=== PATIENT | female | born 1955 | race Caucasian/White ===

== ENCOUNTER 2017-07-27 17:30 | Emergency (ER) | payer OTHER ==
--- NOTE | 2017-07-27 19:10 | PDOC ---
Rapid Medical Evaluation Time Seen by Provider: 07/27/17 18:35 Medical Evaluation: Allergies Allergy/AdvReac Type Severity Reaction Status Date / Time Penicillins Allergy Verified 06/10/15 12:30
== END 2017-07-27 22:13 | disposition left against medical advice (07) ==
LOC: JER 17:30
DX: Z53.21 Procedure and treatment not carried out due to patient leaving prior to being seen by health care provider (principal)
CPT/HCPCS: 99281-25

== ENCOUNTER 2020-08-25 11:46 | Emergency (ER) | payer OTHER ==
[2020-08-25] MEDS ORDERED: BAMLANIVIMAB 700 MG, ETESEVIMAB 1,400 MG in SODIUM CHLORIDE 250 ML IVPB ONE (12:39)
[2020-08-25 13:32] VITALS: TEMP 98.6; BMI 46.5
[2020-08-25 15:29] LABS: POTASSIUM 4.2 mmol/L (3.5-5.1)
[2020-08-25 15:31] LABS: BLOOD UREA NITROGEN 12.9 mg/dL (7-18); CALCIUM 10.7 mg/dL (8.5-10.1)
[2020-08-25 15:35] LABS: CREATININE 0.5 mg/dL (0.55-1.3)
[2020-08-25 15:38] LABS: BASO % 0.6 % (0-2.0); EOS % 1.4 % (0-4.5); HEMATOCRIT 42.7 % (32.4-45.2); HEMOGLOBIN 14.2 GM/dL (10.7-15.3); LYMPH % 34.1 % (8-40); MCH 30.7 pg (25.7-33.7); MCHC 33.3 g/dl (32.0-36.0); MEAN PLT VOLUME 10.3 fl (7.5-11.1); MONO % 8.6 % (3.8-10.2); NEUT % 55.3 % (42.8-82.8); PLATELET COUNT 191 K/MM3 (134-434); RBC 4.65 M/mm3 (3.60-5.2); RDW 13.2 % (11.6-15.6); WHITE BLOOD COUNT 4.8 K/mm3 (4.0-10.0)
[2020-08-25 18:17] VITALS: BP 134/77; PULSE 73
== END 2020-08-25 17:30 | disposition home or self-care (01) ==
LOC: JER 11:46
DX: U07.1 COVID-19 (principal)
CPT/HCPCS: 36415; 80048; 85025; 99284-25; M0239; Q0239; Q0245

== ENCOUNTER 2021-09-15 04:26 | Day surgery (SDC) | payer OTHER ==
[2021-08-25 14:39] VITALS: BMI 39.9
[2021-09-15] MEDS ORDERED: MIDAZOLAM HCL 2 MG/2 ML SINGLE DOSE VIAL ONE (09:22)
[2021-09-15] MEDS ORDERED: PROPOFOL 20 ML ONE ×3 (09:30→09:53)
[2021-09-15] MEDS ORDERED: KETAMINE HCL 200 MG/20 ML VIAL ONE (09:30)
[2021-09-15] MEDS ORDERED: ONDANSETRON 4 MG/2 ML VIAL IVPUSH PRN (10:11)
[2021-09-15] MEDS ORDERED: IBUPROFEN 600 MG TABLET (FP) PO PRN (10:11)
[2021-09-15] MEDS ORDERED: IBUPROFEN 800 MG/8 ML IJ IVPB PRN (10:11)
[2021-09-15] MEDS ORDERED: oxyCODONE HCL 5 MG TABLET PO PRN (10:11)
[2021-09-15] MEDS ORDERED: ELECTROLYTE-148 SOLN 1,000 ML IV SCH (10:15)
[2021-09-15] MEDS ORDERED: ROCURONIUM BROMIDE 50 MG/5 ML SYRINGE ONE (10:24)
[2021-09-15 13:47] VITALS: BP 126/69; PULSE 82; TEMP 97.8
== END 2021-09-15 13:51 | disposition home or self-care (01) ==
LOC: JASU-SURG 04:26
PROVIDERS: ATTEND Obstetrics & Gynecology
PROC: 0UB98ZX Excision of Uterus, Via Natural or Artificial Opening Endoscopic, Diagnostic (ICD-10-PCS; 2021-09-15)
PROC: 0UDB7ZX Extraction of Endometrium, Via Natural or Artificial Opening, Diagnostic (ICD-10-PCS; 2021-09-15)
PROC: 0UB98ZZ Excision of Uterus, Via Natural or Artificial Opening Endoscopic (ICD-10-PCS; principal; 2021-09-15 09:00)
DX: N95.0 Postmenopausal bleeding (principal); N84.0 Polyp of corpus uteri; D25.0 Submucous leiomyoma of uterus; E11.9 Type 2 diabetes mellitus without complications; E66.01 Morbid (severe) obesity due to excess calories
CPT/HCPCS: 82962; 88305-TC; 94760